=== PATIENT | female | born 1940 | race Caucasian/White ===

== ENCOUNTER 2020-11-28 17:30 | Emergency (ER) | payer MEDICARE, OTHER ==
[2020-11-28 20:13] LABS: BASOPHIL 0.5 % (0-2); EOSINOPHIL 2.9 % (0-7); HCT 33.1 % (37.0-47.0); HGB 10.1 g/dl (12.5-16.0); LYMPHOCYTE 23.7 % (15-48); MCH 24.1 pg (25.0-31.0); MCHC 30.5 g/dL (32.0-36.0); MONOCYTE 6.8 % (0-12); MPV 9.7 fL (6.0-9.5); NEUTROPHIL 65.7 % (41-80); NRBC 0; PLT 206 K/uL (150-400); RBC 4.19 M/uL (4.20-5.40); RDW 16.7 % (11.5-14.0); WBC 8.5 K/uL (4.0-10.5)
[2020-11-28 20:37] LABS: PRO-BNP 137 pg/mL (<450)
[2020-11-28 20:40] LABS: ALBUMIN 3.6 g/dL (3.4-5.0); BILIRUBIN - TOTAL 0.3 mg/dL (0.2-1.0); BUN/CREAT RATIO (CALC) 16.5 RATIO; CREATININE 0.91 mg/dL (0.51-0.95); GLOBULIN (CALCULATION) 3.4 g/dL; POTASSIUM 4.6 mmol/L (3.5-5.1)
[2020-11-28 20:50] LABS: LACTIC ACID 1.7 mmol/L (0.4-1.9)
[2020-11-28 22:16] LABS: BILIRUBIN NEGATIVE (NEGATIVE); BLOOD NEGATIVE Ery/uL (NEGATIVE); CLARITY CLEAR (CLEAR); COLOR YELLOW (YELLOW); GLUCOSE (U) NORMAL (NORMAL); LEUKOCYTES NEGATIVE Leu/uL (NEGATIVE); NITRITE NEGATIVE (NEGATIVE); PROTEIN NEGATIVE (NEGATIVE); UROBILINOGEN 0.2 mg/dL (0.2-1.0)
== END 2020-11-28 23:30 | disposition home or self-care (01) ==
LOC: FER 17:30
PROVIDERS: Emergency Medicine Emergency Medical Services
DX: R55 Syncope and collapse (principal); E11.638 Type 2 diabetes mellitus with other oral complications; K21.9 Gastro-esophageal reflux disease without esophagitis; Z88.1 Allergy status to other antibiotic agents; Z79.891 Long term (current) use of opiate analgesic; Z79.899 Other long term (current) drug therapy
CPT/HCPCS: 36415; 71045; 80053; 81003; 82550; 83605; 83880; 84439; 84443; 84484; 85025; 93005; J2405; J7040